=== PATIENT | female | born 1950 | race Caucasian/White ===

== ENCOUNTER → 2016-08-01 | Outpatient (CLI) | payer MEDICARE, OTHER ==
[~2016-08-01] MED LIST: HYZAAR 25 MG-101 TAB PO; LASIX 40MG TABL40 MG PO; MOTRIN 200200 MG/TAB PO; NOVOLIN N100 U/ML SQ; NOVOLIN R100 U/ML SQ; PROAIR HFA0.09 MG/AC IH; PROTONIX20 MG PO; PULMICORT90 MCG/Act IH; ZETIA 10MG TAB10 MG PO; [UNRECOGNIZED DRUG - OTHER] NAS
== END ==
LOC: COL.RAD 14:22
DX: M19.011 Primary osteoarthritis, right shoulder (principal); M75.101 Unspecified rotator cuff tear or rupture of right shoulder, not specified as traumatic; M25.511 Pain in right shoulder

== ENCOUNTER → 2018-08-29 | Outpatient (CLI) | payer MEDICARE, OTHER | LOC: ZCOL.LAB 18:44 | DX: Z01.812 Encounter for preprocedural laboratory examination (principal); Z86.14 Personal history of Methicillin resistant Staphylococcus aureus infection ==

== ENCOUNTER 2021-05-04 14:29 | Inpatient (IN) | payer MEDICARE, OTHER ==
[~2021-05-04] VITALS: Ht 157.5 cm; Wt 84.1 kg
[2021-05-04 15:32] LABS: MEAN CELL VOLUME 91 fl (80.0-100.0); MEAN CORPUSCULAR HGB CONC 33 g/dl (33.0-37.0); MEAN PLATELET VOLUME 11.4 fl (7.4-10.4); RED BLOOD COUNT 2.98 M/mm3 (4.10-5.30); REDCELL DISTRIBUTION WIDTH-CV 15.2 % (11.5-14.5)
[2021-05-04 15:39] LABS: HEMOGLOBIN 8.9 g/dl (12.5-16.0); MEAN CORPUSCULAR HEMOGLOBIN 30 pg (27.0-31.0); PLATELET COUNT 30 K/mm3 (130-400)
[2021-05-04 16:16] LABS: BAND 10 % (0-10); LYMPHOCYTE 40 % (20.0-51.0); NEUTROPHILS 36 % (42.0-75.2); PLATELET ESTIMATE DECREASED (NORMAL)
[2021-05-04 16:52] LABS: ALBUMIN 2.8 gm/dL (3.4-4.8); BILIRUBIN,TOTAL 0.6 mg/dL (0.2-1.2); CALCIUM 8.9 mg/dL (8.4-10.2); CREATININE, serum 1.88 mg/dL (0.57-1.11); POTASSIUM 4.2 mmol/L (3.5-4.5)
[2021-05-04 16:55] LABS: COLLECTION METHOD CLEAN CATCH
[2021-05-04 17:13] LABS: MUCOUS Present /lpf; PH 5 (5-8); SQUAMOUS EPITHELIAL 0-2 /hpf; URINE APPEARANCE Hazy; URINE BACTERIA None Seen /hpf; URINE BILIRUBIN Negative (NEGATIVE); URINE BLOOD 1+ (NEGATIVE); URINE COLOR Yellow; URINE GLUCOSE Negative (NEGATIVE); URINE KETONE Negative (NEGATIVE); URINE LEUKOCYTE ESTERASE Negative (NEGATIVE); URINE NITRATE Negative (NEGATIVE); URINE PROTEIN(semi-quant) Negative (NEGATIVE); URINE UROBILINOGEN Negative (NEGATIVE)
[2021-05-04] MEDS ORDERED: COREG 6.256.25 MG/TA PO (17:25)
[2021-05-04] MEDS ORDERED: DEMADEX 20MG20 M1 PO (17:25)
[2021-05-04] MEDS ORDERED: NORCO 325 MG-51 TAB PO (17:25)
[2021-05-04] MEDS ORDERED: PRIL40 PO (17:25)
--- NOTE | 2021-05-04 19:00 | NUR ---
Report recieved from AALIYAH Baxter. Daughter came to this RN stating that she believed her mother's BS was low. Upon intial check, BS was found to be 40. Patient tolerating PO and was given, orange juice, honey, crackers, and peanut butter. 15 min check performed, BS was 50. Patient given more honey. Another 15 min check was performed, BS at 66. More honey given. BS elysia to 71. MONA Mills made aware.
[2021-05-04 20:03] VITALS: BP 97/46; PULSE 87; TEMP 98.1
[2021-05-04 20:46] VITALS: BP 127/46; PULSE 86; TEMP 98
[2021-05-05] VITALS (12 sets, daily range): BP systolic 92–142; BP diastolic 42–62; PULSE 88–105; TEMP 98.3–99.3
[2021-05-05 04:41] LABS: MEAN CELL VOLUME 94 fl (80.0-100.0); MEAN CORPUSCULAR HGB CONC 32 g/dl (33.0-37.0); MEAN PLATELET VOLUME 10.8 fl (7.4-10.4); RED BLOOD COUNT 2.24 M/mm3 (4.10-5.30); REDCELL DISTRIBUTION WIDTH-CV 15.5 % (11.5-14.5)
[2021-05-05 04:48] LABS: HEMATOCRIT 21.1 % (37.0-47.0); HEMOGLOBIN 6.7 g/dl (12.5-16.0); MEAN CORPUSCULAR HEMOGLOBIN 30 pg (27.0-31.0); PLATELET COUNT 36 K/mm3 (130-400)
[2021-05-05 04:50] LABS: CALCIUM 8.5 mg/dL (8.4-10.2); CREATININE, serum 1.93 mg/dL (0.57-1.11); POTASSIUM 4.1 mmol/L (3.5-4.5)
[2021-05-05 05:23] LABS: BAND 8 % (0-10); LYMPHOCYTE 40 % (20.0-51.0); METAMYELOCYTE 2 % (0-0); NEUTROPHILS 38 % (42.0-75.2); PLATELET ESTIMATE DECREASED (NORMAL)
--- NOTE | 2021-05-05 06:27 | NUR ---
PT ADMITTED LAST NIGHT, ONCOLOGIST NOTIFIED OF CONSULT. AFEBRILE OTHER VITALS STABLE. PT COMPLAINS OF RIGHT SIDED ABD PAIN TENDER BUT SOFT. MORNING LABS SHOWED 6.7 HGH, MONA DUMONT NOTIFIED AND ORDERED X1 UNIT PRBC. DENIES SOA, CHEST PAIN, CHILLS, DIZZINESS. SEE EMAR/MAR FOR OTHER DETAILS.
--- NOTE | 2021-05-05 08:00 | NUR ---
Patient is laying in bed. Blood transfusion initiated by this RN and verified by Saniya-RN. Patient is tolerating transfusion well; Denies any SOB, chest/back pain, dizziness, nausea, or chills. This RN spent the first 15mins in the room with the patient.
[2021-05-05 14:08] LABS: HEMATOCRIT 22.7 % (37.0-47.0); HEMOGLOBIN 7.4 g/dl (12.5-16.0)
--- NOTE | 2021-05-05 15:36 | NUR ---
Director Social Welfare met with patient to discuss discharge planning. Patient states she lives in [place] with her , Rancho (ph#[phone]) and their daughter, Doreen (ph#[phone]) has been staying with them. Doreen is at bedside. Patient sees Odilon Chandra PA-C for primary care and obtains medications from [facility] in [place] with no difficulties. Patient uses a CPAP and no other DME. Patient reports independence with ADLS and plans to return home upon discharge. Patient states she believes she has DPOA-HC which designates her , Rancho. Patient advised she is interested in Home Health services. SW provided Medicare.gov list of HH agencies that serve [place]. STEVEN also contacted MONA Arzola to request PT/OT orders. Discharge Plan: Home with Home Health
--- NOTE | 2021-05-05 16:25 | NUR ---
Patient has done well today. States she feels better since receiving the blood transfusion this AM. Patient has been able to tolerate PO better w/ less nausea. Patient given PRN norco for abdominal pain.
--- NOTE | 2021-05-05 22:16 | NUR ---
Patient assessed around 2014. Alert and oriented, and able to make needs known. Reported mild pain to abdomen/back, but did not want pain medication at that time. Complained of level 4 pain to area around 2155, and given PRN [place] as requested for pain at that time. Port to right chest with fluids and antibiotics running per orders. Denies SOB and dyspnea. LS CTA in upper lobes, diminished in lower. Respirations even and unlabored. Was on room air, but usually wears CPAP. Daughter had graham in CPAP, but forgot a piece. Patient put on oxygen at 2 L/min via NC for the night. HRR. Capillary refill less than 3 seconds. Voices no questions, needs, or concerns at this time. In bed with call light within reach.
[2021-05-06 01:38] VITALS: BP 123/40; PULSE 94; TEMP 98.7
--- NOTE | 2021-05-06 05:05 | NUR ---
Patient has been resting in bed with call light within reach. Received PRN [place] once this shift for pain as requested. Voices no further questions, needs, or concerns at this time.
[2021-05-06 06:55] LABS: MEAN CELL VOLUME 95 fl (80.0-100.0); MEAN CORPUSCULAR HGB CONC 33 g/dl (33.0-37.0); PLATELET COUNT 53 K/mm3 (130-400); REDCELL DISTRIBUTION WIDTH-CV 15.8 % (11.5-14.5)
[2021-05-06 07:04] LABS: HEMATOCRIT 22.8 % (37.0-47.0); HEMOGLOBIN 7.4 g/dl (12.5-16.0); MEAN CORPUSCULAR HEMOGLOBIN 31 pg (27.0-31.0)
[2021-05-06 07:12] LABS: CALCIUM 8.7 mg/dL (8.4-10.2); CREATININE, serum 1.69 mg/dL (0.57-1.11); MAGNESIUM 1.6 mg/dL (1.6-2.6); POTASSIUM 4.2 mmol/L (3.5-4.5)
[2021-05-06 07:41] LABS: BAND 26 % (0-10); EOSINOPHIL 6 % (0-4); LYMPHOCYTE 21 % (20.0-51.0); METAMYELOCYTE 4 % (0-0); MYELOCYTE 1 % (0-0); NEUTROPHILS 31 % (42.0-75.2); NUCLEATED RED BLOOD CELL 2 (0-6)
[2021-05-06 07:42] LABS: PLATELET ESTIMATE DECREASED (NORMAL)
[2021-05-06 07:45] VITALS: BP 137/57; PULSE 96; TEMP 98.3
--- NOTE | 2021-05-06 09:06 | NUR ---
Patient laying in bed upon entering the room, requested PRN zofran for nausea. Patient worked with PT and ambulated the pace w/o and difficulty. Patient is now sitting in the recliner eating breakfast. Patient is independent, uses call light when anything is needed.
[2021-05-06 11:33] VITALS: BP 135/49; PULSE 88; TEMP 99
--- NOTE | 2021-05-06 11:48 | NUR ---
First visit from the artificial cherry maker. No needs right now.
[2021-05-06 16:10] VITALS: BP 130/52; PULSE 93; TEMP 99.3
--- NOTE | 2021-05-06 17:58 | NUR ---
Patient has done well today. Does not have any complaints. Patient set-up to take a shower by this RN.
[2021-05-06 20:16] VITALS: BP 146/41; PULSE 93; TEMP 99
[2021-05-07 00:06] VITALS: BP 134/53; PULSE 92; TEMP 99.1
[2021-05-07 04:15] VITALS: BP 158/63; PULSE 98; TEMP 98.9
--- NOTE | 2021-05-07 05:08 | NUR ---
Rested quietly throughout night warehouse manager, no c/o at this time, call francisco w/i christian, telemetry in use, no s/s of hypo/hyper glycemia, call francisco w/i christian.
--- NOTE | 2021-05-07 05:39 | NUR ---
Patient c/o R arm swelling, upon inspection R arm with edema, Call placed to Trixie Enriquez NON: R arm Venous Duplex- Call placed to Radiology to notify. Updated patient on plan of care.
[2021-05-07 07:46] LABS: MEAN CELL VOLUME 93 fl (80.0-100.0); MEAN CORPUSCULAR HGB CONC 33 g/dl (33.0-37.0); MEAN PLATELET VOLUME 11.5 fl (7.4-10.4); PLATELET COUNT 89 K/mm3 (130-400); RED BLOOD COUNT 2.43 M/mm3 (4.10-5.30); REDCELL DISTRIBUTION WIDTH-CV 15.9 % (11.5-14.5)
[2021-05-07 07:48] LABS: HEMATOCRIT 22.7 % (37.0-47.0); HEMOGLOBIN 7.5 g/dl (12.5-16.0); MEAN CORPUSCULAR HEMOGLOBIN 31 pg (27.0-31.0)
[2021-05-07 07:57] VITALS: BP 136/61; PULSE 97; TEMP 98.2; TEMP 99.3
[2021-05-07 08:45] LABS: CALCIUM 9.4 mg/dL (8.4-10.2); CREATININE, serum 1.2 mg/dL (0.57-1.11); POTASSIUM 4.3 mmol/L (3.5-4.5)
[2021-05-07 09:00] LABS: BAND 32 % (0-10); EOSINOPHIL 1 % (0-4); LYMPHOCYTE 11 % (20.0-51.0); METAMYELOCYTE 5 % (0-0); MYELOCYTE 2 % (0-0); NEUTROPHILS 43 % (42.0-75.2); NUCLEATED RED BLOOD CELL 1 (0-6); PLATELET ESTIMATE DECREASED (NORMAL)
[2021-05-07 09:02] LABS: OVALOCYTES 1+
[2021-05-07] MEDS ORDERED: ZOFRAN ODT8 MG PO (09:23)
--- NOTE | 2021-05-07 10:05 | NUR ---
Scheduled medications given. Shift assessment performed. Patient states that she is feeling alot better today and is ready to go home. Still c/o 4/10 abdominal pain, but states that it is at a manageable level at this time. LUE swollen, venous doppler negative. Patient denies any further pain, discomfort, SOA, or further needs at this time. Call light in reach. VSS. Patient A&O.
--- NOTE | 2021-05-07 12:24 | NUR ---
Patient deemed fit for discharge. Lakshmi-Cath DC'd by AALIYAH Kothari. Discharge instructions/educations given. All questions and concerns answered. Patient denies any chest pain, SOA, or disomfort. VSS. Patient A&O. Patient escorted from building via wheelchair by [facility] Staff. Daughter transfering home. Going home with health.
--- NOTE | 2021-05-07 13:58 | NUR ---
Paint Sprayer Sandblaster met with patient to follow up on Home Health. Patient would like to use [facility] out of [place]. STEVEN contacted Darian at [facility] and faxed referral with orders. Darian advised they are able to accept referral. Patient will discharge home today with [facility] PT/OT/Nursing.
== END 2021-05-07 12:05 | disposition home health service (06) | DRG 809 ==
LOC: COL.ER 14:29 → MEDICAL 17:59
PROVIDERS: Personal Emergency Response Attendant; Physician Assistant; ADMIT Student in an Organized Health Care Education/Training Program
DX: D61.810 Antineoplastic chemotherapy induced pancytopenia (principal); C85.90 Non-Hodgkin lymphoma, unspecified, unspecified site; N17.9 Acute kidney failure, unspecified; K52.1 Toxic gastroenteritis and colitis; D70.9 Neutropenia, unspecified; R50.81 Fever presenting with conditions classified elsewhere; T45.1X5A Adverse effect of antineoplastic and immunosuppressive drugs, initial encounter; K59.00 Constipation, unspecified; I12.9 Hypertensive chronic kidney disease with stage 1 through stage 4 chronic kidney disease, or unspecified chronic kidney disease; N18.9 Chronic kidney disease, unspecified; E11.22 Type 2 diabetes mellitus with diabetic chronic kidney disease; Z79.4 Long term (current) use of insulin; Z23 Encounter for immunization; Z20.822 Contact with and (suspected) exposure to COVID-19
CPT/HCPCS: 99222-AI; 99232-AI; 99239; J0456; J0692; J0696; J1447; J1644; J1815; J2405; J7030; J7050; P9040

== ENCOUNTER → 2022-03-08 | Outpatient (CLI) | payer MEDICARE, OTHER ==
[~2022-03-08] VITALS: Ht 157.5 cm; Wt 89.4 kg
[~2022-03-08] MED LIST changes: +COREG 6.256.25 MG/TA PO; +COZAAR 50MG50 MG/TAB PO; +DEMADEX 20MG20 M1 PO; +NORCO 325 MG-51 TAB PO; +NORCO 325 MG-7.1 TAB PO; +PRIL40 PO; +TOPROL XL 50MG50 MG PO; +ZOFRAN ODT8 MG PO
[2022-03-08 08:44] VITALS: BP 180/76; PULSE 69; TEMP 97.9
[2022-03-08 10:20] VITALS: BP 166/82; PULSE 68
== END ==
LOC: COL.RAD 08:27
DX: C83.39 Diffuse large B-cell lymphoma, extranodal and solid organ sites (principal)
CPT/HCPCS: 32108